=== PATIENT | male | born 1980 | race Caucasian/White ===

== ENCOUNTER 2016-11-15 20:36 | Emergency (ER) | payer OTHER ==
[2016-11-15 20:43] VITALS: BP 150/79
[2016-11-15] MEDS ORDERED: Ondansetron 4 MG/2 ML SDV IV ONE (20:44)
[2016-11-15 21:15] LABS: CHLORIDE,CL 102 mmol/L (101-111); SODIUM,NA 137 mmol/L (135-145)
--- NOTE | 2016-11-15 21:22 | EDM.PDOC ---
ED HPI GI/ABDOMINAL - General Chief Complaint: Abdominal Pain Stated Complaint: AMBULANCE Time Seen by Provider: 11/15/16 21:20 Source of Information: Reports: Patient History Limitations: Reports: No limitations - History of Present Illness INITIAL COMMENTS - FREE TEXT/NARRATIVE: been drinking yesterday c/o abd' pain with vomiting all day. - Related Data Allergies/ADRs: Allergies Allergy/AdvReac Type Severity Reaction Status Date / Time No Known Allergies Allergy Verified 11/15/16 20:30 Home Meds: Home Meds . [No Known Home Meds] 09/06/13 [History] Past Medical History HEENT History: Reports: None Cardiovascular History: Reports: None Respiratory History: Reports: None Gastrointestinal History: Reports: None Genitourinary History: Reports: None Musculoskeletal History: Reports: None Neurological History: Reports: Brain injury Psychiatric History: Reports: None Endocrine/Metabolic History: Reports: None Hematologic History: Reports: None Immunologic History: Reports: None Oncologic (Cancer) History: Reports: None Dermatologic History: Reports: None - Past Surgical History Head Surgeries/Procedures: Reports: None GI Surgical History: Reports: Appendectomy Social & Family History - Tobacco Use Smoking Status *Q: Heavy Tobacco Smoker Years of Tobacco use: 10 Packs/Tins Daily: 1 Second Hand Smoke Exposure: No - Caffeine Use Caffeine Use: Reports: Coffee, Soda, Tea - Alcohol Use Days Per Week of Alcohol Use: 1 Number of Drinks Per Day: 0 Total Drinks Per Week: 0 - Recreational Drug Use Recreational Drug Use: Yes Recreational Drug Type: Reports: Marijuana/Hashish Recreational Drug Use Frequency: Socially - Living Situation & Occupation Living situation: Reports: single, with family Occupation: employed ED ROS GENERAL - Review of Systems Review Of Systems: ROS reveals no pertinent complaints other than HPI. ED EXAM, GI/ABD - Physical Exam Exam: See Below Exam Limited By: No limitations General Appearance: alert, WD/WN, mild distress, other (crying) Ears: hearing grossly normal Throat/Mouth: Normal voice, No airway compromise Head: atraumatic Neck: non-tender, full range of motion Respiratory/Chest: no respiratory distress Cardiovascular: regular rate, rhythm GI/Abdominal: hyperactive bowel sounds, tenderness, other (epig). No: distention, guarding, rebound, rigidity Neurological: alert, oriented, normal cognition, normal gait, no motor/sensory deficits Psychiatric: tearful Skin Exam: Warm, Dry Lymphatic: no adenopathy Course - Vital Signs Last Recorded V/S: Last Vital Signs Temp 35.6 C 11/15/16 20:39 Pulse 72 11/15/16 20:39 Resp 20 11/15/16 20:39 BP 150/79 H 11/15/16 20:39 Pulse Ox 100 11/15/16 20:39 - Orders/Labs/Meds Labs: Laboratory Tests 11/15/16 11/15/16 Range/Units 20:47 20:47 WBC 13.8 H (5.0-10.0) 10^3/uL RBC 5.04 (4.6-6.2) 10^6/uL Hgb 16.0 (14.0-18.0) g/dL Hct 45.7 (40.0-54.0) % MCV 90.7 (80-100) fL MCH 31.7 (27.0-34.0) pg MCHC 35.0 (33.0-35.0) g/dL Plt Count 321 (150-450) 10^3/uL Neut % (Auto) 85.7 H (42.2-75.2) % Lymph % (Auto) 10.3 L (20.5-50.1) % [place] % (Auto) 3.8 (2-8) % Eos % (Auto) 0.1 L (1.0-3.0) % Baso % (Auto) 0.1 (0.0-1.0) % Sodium 137 (135-145) mmol/L Potassium 3.9 (3.6-5.0) mmol/L Chloride 102 (101-111) mmol/L Carbon Dioxide 22.0 (21.0-31.0) mmol/L Anion Gap 16.9 BUN 11 (7-18) mg/dL Creatinine 0.8 (0.6-1.3) mg/dL Est Cr Clr Drug Dosing 142.81 mL/min Estimated GFR (MDRD) > 60 BUN/Creatinine Ratio 13.75 Glucose 157 H (74-105) mg/dL Calcium 9.7 (8.4-10.2) mg/dl Total Bilirubin 0.8 (0.2-1.0) mg/dL AST 28 (10-42) IU/L ALT 19 (10-60) IU/L Alkaline Phosphatase 99 (42-121) IU/L Total Protein 8.6 H (6.7-8.2) g/dl Albumin 4.6 (3.2-5.5) g/dl Globulin 4.0 Albumin/Globulin Ratio 1.15 Amylase 36 (28-100) U/L Lipase 12 L (22-51) U/L Ethyl Alcohol < 5 mg/dL Meds: Medications Discontinued Medications Generic Name Dose Route Start Last Admin Trade Name Freq PRN Reason Stop Dose Admin Ondansetron HCl 4 mg 11/15/16 20:44 11/15/16 20:48 Zofran IV 11/15/16 20:45 4 mg ONETIME ONE Administration - Re-Assessments/Exams Free Text/Narrative Re-Assessment/Exam: 11/15/16 21:22 s/p zofran=sleeping now. 11/15/16 21:24 sleeping arousable no c/o Departure - Departure Time of Disposition: 21:24 Disposition: Home, Self-Care 01 Condition: good Clinical Impression: Alcoholic gastritis without bleeding Qualifiers: Chronicity: unspecified Qualified Code(s): K29.20 - Alcoholic gastritis without bleeding Instructions: Abdominal Pain, Adult, [id number] Forms: ED Department Discharge Additional Instructions: 1) avoid alcohol 2) avoid solid foods next 24 hours 3) have jello, baby foods 3) follow up at clinic or recheck as needed
== END 2016-11-15 21:30 | disposition home or self-care (01) ==
LOC: DL.ED 20:36
DX: K29.20 Alcoholic gastritis without bleeding (principal); F17.200 Nicotine dependence, unspecified, uncomplicated
CPT/HCPCS: 36415; 80053; 82150; 83690; 85025; 96374; 99284; G0480; J2405; 99283

== ENCOUNTER 2017-01-25 12:27 | Emergency (ER) | payer OTHER ==
[2017-01-25 12:40] VITALS: BP 94/60
[2017-01-25] MEDS ORDERED: Lidocaine 1% 30 ML SDV INJECT ONE (12:51)
[2017-01-25] MEDS ORDERED: Bacitracin Oint 1 GM U/D Packet TOP ONE (12:52)
[2017-01-25] MEDS ORDERED: Cephalexin 500 MG Cap PO ONE (12:52)
[2017-01-25] MEDS ORDERED: Clindamycin HCl 150 MG Cap PO ONE (12:52)
--- NOTE | 2017-01-25 13:21 | EDM.PDOC ---
Scribed by January Perez 01/25/17 1321 for Fran Jackson MD ED HPI GENERAL MEDICAL PROBLEM - General Chief Complaint: Skin Complaint Stated Complaint: [id number] SPIDER BITE Time Seen by Provider: 01/25/17 12:48 Source of Information: Reports: Patient, RN, RN Notes Reviewed History Limitations: Reports: No Limitations - History of Present Illness INITIAL COMMENTS - FREE TEXT/NARRATIVE: Onset of pain and redness at right ear lobe 4 days ago and at right forearm 3 days ago. Patient cut his right right ear lobe with a razor and "let the pus out ". Denies fever or chills. Location: Reports: Other (Right ear and right forearm.) Quality: Reports: Ache Severity: Moderate Improves with: Reports: None Worsens with: Reports: None Associated Symptoms: Reports: No Other Symptoms Right Lower Arm Pain Score (Numeric/FACES): 5 - Related Data Allergies Allergy/AdvReac Type Severity Reaction Status Date / Time No Known Allergies Allergy Verified 11/15/16 20:30 Home Meds: Home Meds . [No Known Home Meds] 09/06/13 [History] Past Medical History Dermatologic History: Reports: Psoriasis Social & Family History - Tobacco Use Smoking Status *Q: Heavy Tobacco Smoker Years of Tobacco use: 10 Packs/Tins Daily: 1 Second Hand Smoke Exposure: No - Alcohol Use Days Per Week of Alcohol Use: 1 Number of Drinks Per Day: 0 Total Drinks Per Week: 0 - Recreational Drug Use Recreational Drug Use: Yes Recreational Drug Use Frequency: Socially - Living Situation & Occupation Living situation: Reports: Single, with Family Occupation: Employed ED ROS GENERAL - Review of Systems Review Of Systems: ROS reveals no pertinent complaints other than HPI. ED EXAM, SKIN/RASH Exam: See Below Exam Limited By: No Limitations General Appearance: Alert, WD/WN, No Apparent Distress Eye Exam: Bilateral Eye: Normal Inspection Ears: Other (see skin for right ear) Nose: Normal Inspection, Normal Mucosa, No Blood Throat/Mouth: Normal Inspection, Normal Lips, Normal Teeth, Normal Gums, Normal Oropharynx, Normal Voice, No Airway Compromise Head: Atraumatic, Normocephalic Neck: No: Lymphadenopathy (L), Lymphadenopathy (R) Respiratory/Chest: No Respiratory Distress Cardiovascular: Normal Peripheral Pulses, Regular Rate, Rhythm, No Edema, No Gallop, No JVD, No Murmur, No Rub Back Exam: Normal Inspection, Full Range of Motion, NT Extremities: Normal Inspection, Normal Range of Motion, Non-Tender, No Pedal Edema, Normal Capillary Refill Neurological: Alert, Oriented, CN II-XII Intact, Normal Cognition, Normal Gait, Normal Reflexes, No Motor/Sensory Deficits Psychiatric: Normal Affect, Normal Mood Skin: Other (Erythema with mild swelling at right aer lobe and tragus, no fluctuance or drainage. Right dorsal forearm with 4cm diameter fluctuant tender and swollen erythematous abscess. ) ED SKIN PROCEDURES - I&D Site: Rt forearm Skin Prep: Chlorhexidine (Hibiciens), Saline Local Anesthesia: Lidocaine: 1% Plain Local Anesthetic Volume: Other (10cc) Area Incised With: 11 Blade Drainage: Purulent, Moderate Amount Probed to Break Up Loculations: Yes Packed With: 1/4 in. Iodoform Sterile Dressinx4(s) Complications: No Course - Vital Signs Last Recorded V/S: Last Vital Signs Temp 37.2 C 01/25/17 12:38 Pulse 92 01/25/17 12:38 Resp 16 01/25/17 12:38 BP 94/60 01/25/17 12:38 Pulse Ox 99 01/25/17 12:38 - Orders/Labs/Meds Orders: Active Orders 24 hr Category Date Time Status CULTURE WOUND [RM] Stat Lab 01/25/17 12:51 Ordered Meds: Medications Discontinued Medications Generic Name Dose Route Start Last Admin Trade Name Freq PRN Reason Stop Dose Admin Bacitracin 1 dose 01/25/17 12:52 Bacitracin Oint 1 Gm TOP 01/25/17 12:53 ONETIME ONE Cephalexin 500 mg 01/25/17 12:52 01/25/17 13:03 Keflex PO 01/25/17 12:53 500 mg ONETIME ONE Administration Clindamycin HCl 300 mg 01/25/17 12:52 01/25/17 13:03 Cleocin PO 01/25/17 12:53 300 mg ONETIME ONE Administration Lidocaine HCl 30 ml 01/25/17 12:51 Xylocaine-Mpf 1% INJECT 01/25/17 12:52 ONETIME ONE Departure - Departure Time of Disposition: 13:20 Disposition: Home, Self-Care 01 Condition: Good Clinical Impression: Abscess of right forearm, Cellulitis of right forearm, Cellulitis of right external ear - Discharge Information Instructions: Abscess, [id number], Cellulitis, Adult, [id number] Forms: ED Department Discharge Additional Instructions: RX: Bactroban ointment 2%. RX: Cephalexin 500mg. RX: Clindamycin 300mg. Follow up in clinic in 2 days for packing removal and recheck. Change dressing twice a day. - My Orders Last 24 Hours: My Active Orders 01/25/17 12:51 CULTURE WOUND [RM] Stat - Assessment/Plan Last 24 Hours: My Active Orders 01/25/17 12:51 CULTURE WOUND [RM] Stat I have read and agree with the documentation that has been completed regarding this visit. By signing this record, I attest that the documentation was completed in my physical presence and is an accurate record of the encounter.
[2017-01-25] MEDS ORDERED: Diphtheria,Pertussis(Acell),Tetanus Vaccine 0.5 ML SDV IM ONE (13:24)
== END 2017-01-25 13:42 | disposition home or self-care (01) ==
LOC: DL.ED 12:27
DX: L03.113 Cellulitis of right upper limb (principal); L02.413 Cutaneous abscess of right upper limb; H60.11 Cellulitis of right external ear; F17.210 Nicotine dependence, cigarettes, uncomplicated
CPT/HCPCS: 10060; 87070; 87077; 87186; 90715; 96372; 99282; A9270

== ENCOUNTER 2018-09-28 11:19 | Emergency (ER) | payer SELFPAY ==
[2018-09-28] MEDS ORDERED: Ketorolac 30 MG/ML SDV IVPUSH ONE (11:23)
--- NOTE | 2018-09-28 11:23 | EDM.PDOC ---
ED HPI GENERAL MEDICAL PROBLEM - General Chief Complaint: Gastrointestinal Problem Stated Complaint: UNKNOWN-AMBULANCE Time Seen by Provider: 09/28/18 11:19 Source of Information: Reports: Patient, EMS History Limitations: Reports: No Limitations - History of Present Illness INITIAL COMMENTS - FREE TEXT/NARRATIVE: pt states been having tooth problems for awhile got worse yesterday took about 10 Q3hr of friends clindamycin started abd pain tooth worse pain and vomiting this am. Abdominal Pain Score (Numeric/FACES): 10 - Related Data Allergies Allergy/AdvReac Type Severity Reaction Status Date / Time No Known Allergies Allergy Verified 09/28/18 11:20 Home Meds: Home Meds . [No Known Home Meds] 09/06/13 [History] Past Medical History HEENT History: Reports: None Cardiovascular History: Reports: None Respiratory History: Reports: None Gastrointestinal History: Reports: None Genitourinary History: Reports: None Musculoskeletal History: Reports: None Neurological History: Reports: Brain Injury Psychiatric History: Reports: None Endocrine/Metabolic History: Reports: None Hematologic History: Reports: None Immunologic History: Reports: None Oncologic (Cancer) History: Reports: None Dermatologic History: Reports: Psoriasis - Past Surgical History Head Surgeries/Procedures: Reports: None HEENT Surgical History: Reports: Other (See Below) Other HEENT Surgeries/Procedures: head surgery GI Surgical History: Reports: Appendectomy, Hernia, Abdominal Social & Family History - Caffeine Use Caffeine Use: Reports: Coffee - Living Situation & Occupation Living situation: Reports: Single, with Family Occupation: Employed ED ROS GENERAL - Review of Systems Review Of Systems: ROS reveals no pertinent complaints other than HPI. ED EXAM, GI/ABD - Physical Exam Exam: See Below Exam Limited By: No Limitations General Appearance: Alert, WD/WN, Mild Distress, Moderate Distress, Active Emesis, Other (crying) Ears: Hearing Grossly Normal Throat/Mouth: Other (multiple dental decay with local swelling) Head: Atraumatic Neck: Non-Tender, Full Range of Motion Respiratory/Chest: No Respiratory Distress Cardiovascular: Regular Rate, Rhythm GI/Abdominal Exam: Soft, Tender, Other (epiG). No: Distended, Guarding, Rigid, Rebound Neurological: Alert, Oriented, Normal Cognition, Normal Gait, No Motor/Sensory Deficits Psychiatric: Tearful Skin Exam: Warm, Dry, Normal Color Lymphatic: No Adenopathy Course - Vital Signs Last Recorded V/S: Last Vital Signs Temp 36.3 C 09/28/18 11:21 Pulse 61 09/28/18 12:21 Resp 20 09/28/18 12:21 BP 153/97 H 09/28/18 12:21 Pulse Ox 100 09/28/18 12:21 - Orders/Labs/Meds Orders: Active Orders 24 hr Category Date Time Status CULTURE BLOOD [BC] Stat Lab 09/28/18 12:40 Results CULTURE BLOOD [BC] Stat Lab 09/28/18 12:45 Received DRUG SCREEN URINE BIORAD [URCHEM] Stat Lab 09/28/18 12:57 UA RFX KERI AND CULT IF INDIC [URIN] Stat Lab 09/28/18 12:57 Ordered Sodium Chloride 0.9% [Normal Saline] 1,000 ml Med 09/28/18 12:58 Ordered IV .BOLUS Medication Orders Sodium Chloride (Normal Saline) 1,000 mls @ 999 mls/hr IV .BOLUS ONE Stop: 09/28/18 13:58 Labs: Laboratory Tests 09/28/18 09/28/18 09/28/18 Range/Units 11:31 11:31 11:31 WBC 18.2 H (5.0-10.0) 10^3/uL RBC 5.51 (4.6-6.2) 10^6/uL Hgb 17.0 (14.0-18.0) g/dL Hct 48.2 (40.0-54.0) % MCV 87.5 (80-100) fL MCH 30.9 (27.0-34.0) pg MCHC 35.3 H (33.0-35.0) g/dL Plt Count 401 D (150-450) 10^3/uL Neut % (Auto) 80.1 H (42.2-75.2) % Lymph % (Auto) 12.8 L (20.5-50.1) % [place] % (Auto) 6.9 (2-8) % Eos % (Auto) 0.1 L (1.0-3.0) % Baso % (Auto) 0.1 (0.0-1.0) % Sodium 131 L (135-145) mmol/L Potassium 3.8 (3.6-5.0) mmol/L Chloride 98 L (101-111) mmol/L Carbon Dioxide 18.0 L (21.0-31.0) mmol/L Anion Gap 18.8 BUN 17 (7-18) mg/dL Creatinine 1.0 (0.6-1.3) mg/dL Est Cr Clr Drug Dosing 112.09 mL/min Estimated GFR (MDRD) > 60 BUN/Creatinine Ratio 17.00 Glucose 119 H (74-105) mg/dL Lactic Acid 4.1 H (0.5-2.2) mmol/L Calcium 9.1 (8.4-10.2) mg/dl Total Bilirubin 2.0 H (0.2-1.0) mg/dL AST 413 H (10-42) IU/L ALT 849 H (10-60) IU/L Alkaline Phosphatase 108 (42-121) IU/L Total Protein 8.0 (6.7-8.2) g/dl Albumin 4.1 (3.2-5.5) g/dl Globulin 3.9 Albumin/Globulin Ratio 1.05 Ethyl Alcohol mg/dL 09/28/18 Range/Units 11:31 WBC (5.0-10.0) 10^3/uL RBC (4.6-6.2) 10^6/uL Hgb (14.0-18.0) g/dL Hct (40.0-54.0) % MCV (80-100) fL MCH (27.0-34.0) pg MCHC (33.0-35.0) g/dL Plt Count (150-450) 10^3/uL Neut % (Auto) (42.2-75.2) % Lymph % (Auto) (20.5-50.1) % [place] % (Auto) (2-8) % Eos % (Auto) (1.0-3.0) % Baso % (Auto) (0.0-1.0) % Sodium (135-145) mmol/L Potassium (3.6-5.0) mmol/L Chloride (101-111) mmol/L Carbon Dioxide (21.0-31.0) mmol/L Anion Gap BUN (7-18) mg/dL Creatinine (0.6-1.3) mg/dL Est Cr Clr Drug Dosing mL/min Estimated GFR (MDRD) BUN/Creatinine Ratio Glucose (74-105) mg/dL Lactic Acid (0.5-2.2) mmol/L Calcium (8.4-10.2) mg/dl Total Bilirubin (0.2-1.0) mg/dL AST (10-42) IU/L ALT (10-60) IU/L Alkaline Phosphatase (42-121) IU/L Total Protein (6.7-8.2) g/dl Albumin (3.2-5.5) g/dl Globulin Albumin/Globulin Ratio Ethyl Alcohol < 5 mg/dL Meds: Medications Generic Name Dose Route Start Last Admin Trade Name Freq PRN Reason Stop Dose Admin Sodium Chloride 1,000 mls @ 999 mls/hr 09/28/18 12:58 Normal Saline IV 09/28/18 13:58 .BOLUS ONE Discontinued Medications Generic Name Dose Route Start Last Admin Trade Name Freq PRN Reason Stop Dose Admin Ketorolac Tromethamine 30 mg 09/28/18 11:23 09/28/18 11:32 Toradol IVPUSH 09/28/18 11:24 30 mg ONETIME ONE Administration Metoclopramide HCl 10 mg 09/28/18 11:25 09/28/18 11:28 Reglan IVPUSH 09/28/18 11:26 10 mg ONETIME ONE Administration Ondansetron HCl 4 mg 09/28/18 12:14 09/28/18 12:20 Zofran IV 09/28/18 12:15 4 mg ONETIME ONE Administration Pantoprazole Sodium 40 mg 09/28/18 12:15 09/28/18 12:21 Protonix Iv IVPUSH 09/28/18 12:16 40 mg ONETIME ONE Administration - Re-Assessments/Exams Free Text/Narrative Re-Assessment/Exam: 09/28/18 13:04 case discussed with OC-MD who felt due to pt's abn labs pt need to be @ for [facility] surgeon to eval with scan. Dr Sarah rec' pt to go to his office today for scan to determine the best course of treatment and possible admit. pt states he can do that. Departure - Departure Time of Disposition: 13:06 Disposition: Home, Self-Care 01 Condition: Fair Clinical Impression: Tooth abscess Gastritis Qualifiers: Gastritis type: unspecified gastritis Chronicity: unspecified Gastritis bleeding: without bleeding Qualified Code(s): K29.70 - Gastritis, unspecified, without bleeding - Discharge Information Forms: ED Department Discharge Additional Instructions: 1) see Dr Sarah today: [facility] [address] [place] [phone] - My Orders Last 24 Hours: My Active Orders 09/28/18 12:40 CULTURE BLOOD [BC] Stat 09/28/18 12:45 CULTURE BLOOD [BC] Stat 09/28/18 12:57 DRUG SCREEN URINE BIORAD [URCHEM] Stat UA RFX KERI AND CULT IF INDIC [URIN] Stat 09/28/18 12:58 Sodium Chloride 0.9% [Normal Saline] 1,000 ml IV .BOLUS - Assessment/Plan Last 24 Hours: My Active Orders 09/28/18 12:40 CULTURE BLOOD [BC] Stat 09/28/18 12:45 CULTURE BLOOD [BC] Stat 09/28/18 12:57 DRUG SCREEN URINE BIORAD [URCHEM] Stat UA RFX KERI AND CULT IF INDIC [URIN] Stat 09/28/18 12:58 Sodium Chloride 0.9% [Normal Saline] 1,000 ml IV .BOLUS
[2018-09-28] MEDS ORDERED: Metoclopramide 10 MG/2 ML SDV IVPUSH ONE (11:25)
[2018-09-28 12:03] LABS: ANION GAP 18.8; CHLORIDE,CL 98 mmol/L (101-111); SODIUM,NA 131 mmol/L (135-145)
[2018-09-28] MEDS ORDERED: Ondansetron 4 MG/2 ML SDV IV ONE (12:14)
[2018-09-28] MEDS ORDERED: Pantoprazole 40 MG Vial IVPUSH ONE (12:15)
[2018-09-28 12:22] VITALS: BP 153/97
[2018-09-28] MEDS ORDERED: Sodium Chloride 0.9% 1,000 ML IV ONE (12:58)
== END 2018-09-28 14:02 | disposition home or self-care (01) ==
LOC: DL.ED 11:19
DX: K04.7 Periapical abscess without sinus (principal); K29.70 Gastritis, unspecified, without bleeding
CPT/HCPCS: 36415; 80053; 80305; 81001; 83605; 85025; 87040; 96361; 96374; 96375; 99284; C9113; G0480; J1885; J2405; J2765; J7030

== ENCOUNTER 2021-09-19 19:02 | Emergency (ER) | payer SELFPAY ==
[2021-09-19 20:02] LABS: ANION GAP 16.1 mEq/L (7-13); CHLORIDE,CL 103 mmol/L (98-107); SODIUM,NA 142 mmol/L (136-145)
[2021-09-19] MEDS ORDERED: Ondansetron 4 MG/2 ML SDV IVPUSH ONE (20:04)
[2021-09-19 20:47] LABS: AMPHETAMINES,URINE NEGATIVE (NEGATIVE); BARBITURATES,URINE NEGATIVE (NEGATIVE); BENZODIAZEPINE,URINE NEGATIVE (NEGATIVE); MDMA (ECSTASY), URINE NEGATIVE (NEGATIVE); METHADONE,URINE NEGATIVE (NEGATIVE); METHAMPHETAMINES,URINE NEGATIVE (NEGATIVE); OPIATES,URINE POSITIVE (NEGATIVE); OXYCODONE,URINE NEGATIVE (NEGATIVE); PHENCYCLIDINE,URINE NEGATIVE (NEGATIVE); TCA,URINE NEGATIVE (NEGATIVE)
[2021-09-19] MEDS ORDERED: Iopamidol 612 MG/ML 100 ML Bottle IVPUSH ONE (20:55)
[2021-09-19] MEDS ORDERED: Famotidine 20 MG/2 ML SDV IVPUSH ONE (21:43)
[2021-09-19 21:58] VITALS: BP 142/91; PULSE 78
== END 2021-09-19 22:45 | disposition home or self-care (01) ==
LOC: DL.ED 19:02
DX: K57.32 Diverticulitis of large intestine without perforation or abscess without bleeding (principal); R11.2 Nausea with vomiting, unspecified; Z72.0 Tobacco use
CPT/HCPCS: 36415; 74177; 80053; 80305; 81001; 82150; 83605; 83690; 83735; 85025; 86140; 96374; 96375; 99284; J2405; J3490

== ENCOUNTER 2021-11-26 04:59 | Emergency (ER) | payer SELFPAY ==
[2021-11-26] MEDS ORDERED: Pantoprazole 40 MG Vial IVPUSH ONE (05:12)
[2021-11-26 05:18] VITALS: BP 149/92; PULSE 72
[2021-11-26 05:45] LABS: ANION GAP 16.6 mEq/L (7-13); CHLORIDE,CL 104 mmol/L (98-107); SODIUM,NA 139 mmol/L (136-145)
[2021-11-26] MEDS ORDERED: Iopamidol 612 MG/ML 100 ML Bottle IVPUSH ONE (05:48)
[2021-11-26] MEDS ORDERED: HYDROmorphone 0.5 MG/0.5 ML Syringe IVPUSH ONE (05:49)
[2021-11-26] MEDS ORDERED: Ondansetron 4 MG/2 ML SDV IVPUSH ONE (05:50)
[2021-11-26 06:04] LABS: ACETAMINOPHEN 0 ug/mL (10-30 (Therapeutic))
[2021-11-26] MEDS ORDERED: Famotidine 20 MG/2 ML SDV IVPUSH ONE (07:30)
[2021-11-26] MEDS ORDERED: Sucralfate 1 GM Tab PO ONE (07:30)
[2021-11-26] MEDS ORDERED: Ondansetron 4 MG/2 ML SDV IV ONE (07:51)
[2021-11-26] MEDS ORDERED: Ondansetron 4 MG/2 ML SDV ONE (07:52)
[2021-11-26] MEDS ORDERED: GI Cocktail Oral Solution 30 ML PO ONE (08:39)
[2021-11-26] MEDS ORDERED: HYDROmorphone 1 MG/ML Syringe IVPUSH ONE (08:39)
[2021-11-26] MEDS ORDERED: Promethazine 25 MG/ML SDV IM ONE (08:55)
== END 2021-11-26 10:35 | disposition home or self-care (01) ==
LOC: DL.ED 04:59
DX: K29.70 Gastritis, unspecified, without bleeding (principal); Z90.49 Acquired absence of other specified parts of digestive tract
CPT/HCPCS: 36415; 74177; 80053; 80143; 80179; 80307; 82150; 83605; 83690; 83735; 85025; 87040; 96372; 96374; 96375; 96376; 99284; 99284-25; A9270-GY; C9113; J1170; J2405; J2550; J3490; Q9967

== ENCOUNTER 2021-12-31 16:16 | Emergency (ER) | payer MEDICAID ==
[2021-12-31 17:40] VITALS: BP 136/90; PULSE 104
== END 2021-12-31 17:00 | disposition left against medical advice (07) ==
LOC: DL.ED 16:16
DX: R22.0 Localized swelling, mass and lump, head (principal); Z53.21 Procedure and treatment not carried out due to patient leaving prior to being seen by health care provider

== ENCOUNTER 2021-12-31 17:26 | Emergency (ER) | payer MEDICAID | END 2021-12-31 17:58 | disposition left against medical advice (07) | LOC: DL.ED 17:26 | DX: Z53.21 Procedure and treatment not carried out due to patient leaving prior to being seen by health care provider (principal) ==

== ENCOUNTER 2022-09-07 02:05 | Emergency (ER) | payer MEDICAID, OTHER ==
[2022-09-07 03:22] VITALS: BP 125/91; PULSE 89
== END 2022-09-07 03:13 ==
LOC: DL.ED 02:05
DX: Z02.89 Encounter for other administrative examinations (principal); Z20.822 Contact with and (suspected) exposure to COVID-19
CPT/HCPCS: 99282; 99283; U0002